=== PATIENT | female | born 1990 | race African-American/Black ===

== ENCOUNTER 2018-01-09 15:10 | Emergency (ER) | payer OTHER ==
[2018-01-09] MEDS ORDERED: ZANT150T2 PO (16:28)
[2018-01-09] MEDS ORDERED: PROM25TA10 PO (16:28)
--- NOTE | 2018-01-09 16:28 | PD ---
HPI Chief Complaint Nausea vomiting Date Seen: Jan 09, 2018 Time Seen: 16:23 Travel History International Travel<30 Days: No Contact w/Intl Traveler<30Days: No Known Affected Area: No History of Present Illness HPI 27-year-old who is at 35 weeks and 6 days comes in complaining of nausea vomiting since the beginning of her . Nothing has changed a bit today but her significant other felt that she needed to be assessed for medications. In her its says that she was given likely just an early but patient states that she is never taken. Initial weight during was 204 she lost about 10 pounds and is now back up to 207. She has also had some chronic proteinuria since beginning of the that does not seem to have changed has not been associated with elevated blood pressures. Patient states that she has not really experiencing nausea just had sudden feeling that the food that she is just ate is coming right back up. Weeks Gestation: 35 Para: 0 : 1 History Past Medical History Medical History: Denies Significant Hx Past Surgical History Surgical History: No Previous Surgery Family History Family History: Negative Social History Alcohol Use: No Tobacco Use: No Substance Abuse: No Allergies-Medications (Allergen,Severity, Reaction): Coded Allergies: No Known Allergies (Unverified , 08/10/16) Home Meds No Active Prescriptions or Reported Meds Review of Systems Except as stated in HPI: all other systems reviewed are Neg Physical Exam Narrative GENERAL: Well-nourished, well-developed patient. SKIN: Warm and dry. HEAD: Normocephalic and atraumatic. EYES: No scleral icterus. No injection or drainage. ENT: No nasal drainage noted. Mucous membranes pink. Airway patent. NECK: Supple, trachea midline. No JVD. CARDIOVASCULAR: Regular rate and rhythm without murmurs, gallops, or rubs. RESPIRATORY: Breath sounds equal bilaterally. No accessory muscle use. ABDOMEN/GI: Abdomen soft, non-tender, bowel sounds present, no rebound, no guarding Gravid to [36-] weeks size Fundal Height: [-] GENITOURINARY: Deferred External Genitalia: intact and normal in appearance BUS glands: [-] Cervix: [-] Dilatation: [-] Effacement: [-] Station: [-] Presentation: [-] Membranes: [intact or ruptured] Uterine Contractions: [-] FHT's: Category: [-] 1 Baseline: [-] 140 Reactive: [-] Moderate Variability: [-] Moderate Decels: [-] Absent EXTREMITIES: No cyanosis or edema. BACK: Nontender without obvious deformity. No CVA tenderness. NEUROLOGICAL: Awake and alert. Motor and sensory grossly within normal limits. Five out of 5 muscle strength in all muscle groups. Normal speech. Data Data Vital Signs Reviewed: Yes MDM Medical Record Reviewed: Yes Plan 27-year-old who is at 35 weeks 6 days with nausea and vomiting of . Patient has been stable without worsening today. She is considering using medication for relief. She sees her underground utility locator again on Monday. I have given her both Zantac and Phenergan with a reassessment on Monday with a change in medication is necessary. Diagnosis Diagnosis: Primary Impression: 35 weeks gestation of Additional Impression: Nausea and vomiting during Disposition: DISCHARGE HOME Scripts Promethazine (Phenergan) 25 Mg Tablet 25 MG PO Q6H Y for NAUSEA OR VOMITING, #30 TAB 0 Refills Prov: Beatrice Silveira MD 01/09/18 Ranitidine (Zantac) 150 Mg Tab 150 MG PO BID for Reduce Stomach Acid, #60 TAB 0 Refills Prov: Beatrice Silveira MD 01/09/18 Beatrice Silveira MD Jan 09, 2018 16:28
== END 2018-01-09 16:34 | disposition home or self-care (01) ==
LOC: HOBED 15:10
DX: O26.893 Other specified pregnancy related conditions, third trimester (principal); R11.2 Nausea with vomiting, unspecified; Z3A.35 35 weeks gestation of pregnancy
CPT/HCPCS: 59025

== ENCOUNTER 2018-02-06 09:55 | Emergency (ER) | payer OTHER ==
[~2018-02-06 09:55] MED LIST: PROM25TA10 PO; ZANT150T2 PO
[2018-02-06] MEDS ORDERED: PROMETHAZINE INJ 25 MG/ML VIAL IM ONE (10:45)
[2018-02-06] MEDS ORDERED: MEPERIDINE HCL 50 MG/ML VIAL IM ONE (10:45)
--- NOTE | 2018-02-06 10:52 | PD ---
HPI Chief Complaint Back pain and contractions Date Seen: February 06, 2018 Time Seen: 10:45 Travel History International Travel<30 Days: No Contact w/Intl Traveler<30Days: No Known Affected Area: No History of Present Illness HPI Patient is 27-year-old black female at [address] Ramirez for care and presents with back pain and contractions and what she describes" back labor" since early this morning, no bleeding or leakage of fluid , heart rate tracing reactive, she is leighann irregularly but she is so mobile on the bed and thrashing around times that started keep monitor strip Weeks Gestation: 39 Para: 0 : 1 History Social History Alcohol Use: No Tobacco Use: No Substance Abuse: No Allergies-Medications (Allergen,Severity, Reaction): Coded Allergies: No Known Allergies (Unverified , 08/10/16) Home Meds Active Scripts Promethazine (Phenergan) 25 Mg Tablet, 25 MG PO Q6H Y for NAUSEA OR VOMITING, # 30 TAB 0 Refills Prov:Beatrice Silveira MD 01/09/18 Ranitidine (Zantac) 150 Mg Tab, 150 MG PO BID for Reduce Stomach Acid, #60 TAB 0 Refills Prov:Beatrice Silveira MD 01/09/18 Review of Systems General / Constitutional: No: Fever, Weight Gain, Chills, Other Eyes: No: Diploplia, Blurred Vision, Visual changes, Pain, Photophobia HENT: No: Headaches, Vertigo, Lightheadedness Cardiovascular: No: Irregular Rhythm, Chest Pain or Discomfort, Palpitations, Tachycardia, Syncope, Varicosities, Edema, Cyanosis Respiratory: No: Cough, Short of Breath, Other Gastrointestinal: Abdominal Pain, No: Nausea, Vomiting, Diarrhea Genitourinary: No: Decreased Urinary Output, Oliguria Musculoskeletal: No: Limited ROM, Weakness, Cramping, Edema, Pain Skin: No Rash, No Itching, No Dryness, No Lumps, No Change in Pigmentation, No Change in Nails, No Alopecia, No Lesions Neurologic: No: Weakness, Dizziness, Syncope, Focal Abnormalities, Coordination Problem, Headache, Slurred Speech, Seizures Psychiatric: No: Depression, Suicidal Ideations, Homicidal Ideation Endocrine: No: Heat Intolerance, Cold Intolerance, Polydipsia, Polyuria, Other Physical Exam Narrative GENERAL: Well-nourished, well-developed patient. SKIN: Warm and dry. HEAD: Normocephalic and atraumatic. EYES: No scleral icterus. No injection or drainage. ENT: No nasal drainage noted. Mucous membranes pink. Airway patent. NECK: Supple, trachea midline. No JVD. CARDIOVASCULAR: Regular rate and rhythm without murmurs, gallops, or rubs. RESPIRATORY: Breath sounds equal bilaterally. No accessory muscle use. BREASTS: Bilateral exam showed no masses , no retractions, no nipple discharge. ABDOMEN/GI: Abdomen soft, non-tender, bowel sounds present, no rebound, no guarding Gravid to [-39] weeks size Fundal Height: [39-] GENITOURINARY: External Genitalia: intact and normal in appearance BUS glands: [-] Cervix: [-post] Dilatation: [-1] Effacement: [70-] Station: [-3] Presentation: [vtx-] Membranes: [intact ] Uterine Contractions: [-irreg] FHT's: Category: [-1] Baseline: [133-] Reactive: [-R] Variability: [-mod] Decels: [-none] EXTREMITIES: No cyanosis or edema. BACK: Nontender without obvious deformity. No CVA tenderness. NEUROLOGICAL: Awake and alert. Motor and sensory grossly within normal limits. Five out of 5 muscle strength in all muscle groups. Normal speech. Data Data Orders Orders Meperidine Inj (Demerol Inj) (02/06/18 10:45) Promethazine Inj (Phenergan Inj) (02/06/18 10:45) MDM Interpretation(s) 27-year-old black female at 39 weeks who presents with severe back pain that comes and goes and contractions. Her contractions are somewhat irregular but they are hard to monitor because she moves around a lot on the bed, no bleeding or leakage of fluid, heart rate tracing reactive, her cervix is 1 /70/-3/vertex Plan Planned offer the patient IM shot of Demerol Phenergan for her pain monitor the baby for a reactive NST We will likely discharge to observation at home with Tylenol, increase fluids, bed rest, heating pad or hot bath for symptom relief return for worsening pain, bleeding, leakage otherwise see her OB provider Diagnosis Diagnosis: Primary Impression: Uterine contractions during Additional Impression: 39 weeks gestation of Disposition: DISCHARGE HOME Condition: Stable Cooper Oro II, MD February 06, 2018 10:52
[2018-02-07] MEDS ORDERED: PREN1TAB45 PO ×2 (11:16)
== END 2018-02-06 14:10 | disposition home or self-care (01) ==
LOC: HOBED 09:55
DX: O62.9 Abnormality of forces of labor, unspecified (principal); Z3A.39 39 weeks gestation of pregnancy; Z79.899 Other long term (current) drug therapy
CPT/HCPCS: 59025; 96372; 99284; J2175; J2550

== ENCOUNTER 2018-02-07 10:44 | Inpatient (IN) | payer OTHER ==
[2018-02-07] VITALS (32 sets, daily range): BP systolic 92–153; BP diastolic 54–105; PULSE 76–185; RESP 18–20; TEMP 97.4–98.4; O2SAT 100
[~2018-02-07] VITALS: Ht 162.6 cm; Wt 92.1 kg
[2018-02-07] MEDS ORDERED: PREN1TAB45 PO ×2 (11:16)
[2018-02-07] MEDS ORDERED: LACTATED RINGER'S 1000 ML INJ 1,000 ML IV PRN (11:27)
--- NOTE | 2018-02-07 11:27 | PD ---
HPI Chief Complaint Contraction Travel History International Travel<30 Days: No Contact w/Intl Traveler<30Days: No Known Affected Area: No History of Present Illness HPI 27-year-old , IUP at 40.0 care complicated by anxiety The patient presents reporting contractions that started 8 AM yesterday. She reports that they increased in intensity and frequency during the afternoon and became very painful at 4 AM. She reports that the contractions are regular and are occurring every few minutes. She denies any leaking of fluid or vaginal bleeding. She reports that she had some vaginal spotting yesterday after she was examined. She reports good movement. Weeks Gestation: 40 Para: 0 : 1 History Past Medical History Narrative Medical Obesity, anxiety Obstetric History Obstetric History Past Surgical History Surgical History: No Previous Surgery Family History Narrative Family History HTN Social History Alcohol Use: No Tobacco Use: No Substance Abuse: No Allergies-Medications (Allergen,Severity, Reaction): Coded Allergies: No Known Allergies (Unverified Allergy, Unknown, 02/06/18) Home Meds Reported Medications Vit,Calc76/Iron/Folic (Pnv 29-1 Tablet) 29 Mg Iron-1 Mg Tablet, 1 TAB PO DAILY 02/07/18 Discontinued Scripts Promethazine (Phenergan) 25 Mg Tablet, 25 MG PO Q6H Y for NAUSEA OR VOMITING, # 30 TAB 0 Refills Prov:Beatrice Silveira MD 01/09/18 Ranitidine (Zantac) 150 Mg Tab, 150 MG PO BID for Reduce Stomach Acid, #60 TAB 0 Refills Prov:Beatrice Silveira MD 01/09/18 Review of Systems Except as stated in HPI: all other systems reviewed are Neg Physical Exam Narrative GENERAL: Well-nourished, well-developed patient. SKIN: Warm and dry. HEAD: Normocephalic and atraumatic. EYES: No scleral icterus. No injection or drainage. ENT: No nasal drainage noted. Mucous membranes pink. Airway patent. NECK: Supple, trachea midline. No JVD. CARDIOVASCULAR: Regular rate and rhythm without murmurs, gallops, or rubs. RESPIRATORY: Breath sounds equal bilaterally. No accessory muscle use. BREASTS: Deferred ABDOMEN/GI: Abdomen soft, non-tender, bowel sounds present, no rebound, no guarding Gravid GENITOURINARY: External Genitalia: intact and normal in appearance. Normal BUS. No cervical or vaginal masses noted. Physiologic discharge. Normal rugae noted. SVE 6/90/-2 as per RN exam. FHT's: heart tones are in the 120s with moderate long-term variability, good accelerations, no decelerations noted. There is a category 1 heart rate tracing and a reactive NST. EXTREMITIES: No cyanosis or edema. BACK: Nontender without obvious deformity. NEUROLOGICAL: Awake and alert. Motor and sensory grossly within normal limits. Normal speech. Psychiatric: Grossly normal memory and affect Musculoskeletal: Grossly normal range of motion, gait, muscle strength Data Data Orders Orders Ob (2e) Additional Admit Info (02/07/18 11:06) MDM Plan Assessment/plan: 1. IUP at 40.0 2. Active labor: We will admit to Dr. New for labor at term. Basic labor orders placed. Dr. new notified. 3. well-being: Reassuring testing with reactive NST and category 1 heart rate tracing. Will continue monitoring 4. GBS negative 5. Obesity 6. History of anxiety 7. First BP elevated, but was during RN exam, subsequent BP in triage normal. Monitor closely. Giovana Mckay MD February 07, 2018 11:27
[2018-02-07] MEDS ORDERED: OXYTOCIN 30 UNITS-500ML PREMIX 500 ML IV ONE (11:30)
[2018-02-07] MEDS ORDERED: LIDOCAINE HCL 1% 50 ML VIAL I-DERMAL PRN (11:30)
[2018-02-07] MEDS ORDERED: LIDOCAINE HCL 1% 50 ML VIAL INFIL PRN (11:30)
[2018-02-07] MEDS ORDERED: CITRIC ACID-SODIUM CITRATE LIQ 30 ML UDC PO SCH (11:30)
[2018-02-07] MEDS ORDERED: SODIUM CHLORID 0.9% 500 ML INJ 500 ML IV PRN (11:30)
[2018-02-07] MEDS ORDERED: ONDANSETRON HCL 4 MG/2 ML VIAL IV PUSH PRN (11:30)
[2018-02-07] MEDS ORDERED: SODIUM CHLOR 0.9% 1000 ML INJ 1,000 ML IV PRN (11:47)
[2018-02-07 12:17] LABS: AUTOMATED NEUTROPHIL # 7.5 TH/MM3 (1.8-7.7); BASOPHIL % 0.1 % (0.0-2.0); HEMATOCRIT 35.4 % (35.0-46.0); HEMOGLOBIN 12.1 GM/DL (11.6-15.3); LYMPH % 13.8 % (9.0-44.0); LYMPHOCYTE # 1.3 TH/MM3 (1.0-4.8); MEAN CELL VOLUME 91.6 FL (80.0-100.0); MEAN CORPUSCULAR HEMOGLOBIN 31.2 PG (27.0-34.0); MEAN CORPUSCULAR HGB CONC 34.1 % (32.0-36.0); MEAN PLATELET VOLUME 8.8 FL (7.0-11.0); MONO % 5.4 % (0.0-8.0); MONOCYTE # 0.5 TH/MM3 (0-0.9); NEUT % 80.7 % (16.0-70.0); PLATELET COUNT 234 TH/MM3 (150-450); RED BLOOD COUNT 3.86 MIL/MM3 (4.00-5.30); RED CELL DISTRIBUTION WIDTH 16.2 % (11.6-17.2); WHITE BLOOD COUNT 9.3 TH/MM3 (4.0-11.0)
[2018-02-07] MEDS: LACTATED RINGER'S 1000 ML INJ 1,000 ML IV SCH ×2 (12:24→19:54)
[2018-02-07 12:28] LABS: BACTERIA, URINE RARE /hpf; BILIRUBIN, URINE NEG (NEG); BLOOD, URINE NEG (NEG); GLUCOSE,URINE NEG (NEG); HYALINE CAST, URINE 2 /lpf (RARE); KETONE, URINE 150 mg/dL (NEG); MUCUS URINE FEW /lpf (OCC); NITRITE,URINE NEG (NEG); SQUAMOUS EPITHELIAL CELL URINE 3 /hpf (0-5); URINE COLOR YELLOW (YELLW/STRAW); URINE LEUKOCYTE ESTERASE TRACE (NEG)
[2018-02-07] MEDS ORDERED: fentaNYL 2MCG-BUPIV 0.125% INJ 100 ML ONE (18:19)
[2018-02-07] MEDS ORDERED: ePHEDrine/NS 25 MG/5 ML SYRINGE ONE (18:19)
[2018-02-07] MEDS ORDERED: LIDOCAINE HCL 1% PF 30 ML VIAL ONE (19:27)
[2018-02-07] MEDS ORDERED: diphenhydrAMINE HCL 50 MG/ML VIAL IV PUSH ONE (20:30)
--- NOTE | 2018-02-07 20:30 | PD.LABORPN ---
Subjective Subjective comfortable with epidural Objective Vital Signs Vital Signs Date Time Temp Pulse Resp B/P (MAP) Pulse Ox O2 Delivery O2 Flow Rate FiO2 02/07/18 19:50 138/65 (89) 02/07/18 19:50 108 02/07/18 19:46 124 141/71 (94) 02/07/18 19:45 119 02/07/18 19:44 109 123/91 (102) 02/07/18 19:40 91 100 02/07/18 19:35 89 148/77 (100) 100 02/07/18 19:31 108 153/74 (100) 02/07/18 19:30 121 100 02/07/18 18:58 111 108/88 (95) 02/07/18 18:54 97.4 18 02/07/18 17:12 116 130/79 (96) 02/07/18 15:53 76 128/73 (91) 02/07/18 14:05 20 02/07/18 14:04 90 112/54 (73) 02/07/18 13:42 98.4 Objective 8cm, swelling of anterior lip ant tightening -1 station strip reassuring Weeks Gestation: 40 Gest Age Assessed Date: February 07, 2018 Gest Age Assessed Time: 20:28 Assessment/Plan Assessment and Plan IUPC placed benedryl 50 IM likelihood of section if cervix continues to swell and tighten Grace Gruber MD February 07, 2018 20:30
[2018-02-07] MEDS ORDERED: ePHEDrine/NS 25 MG/5 ML SYRINGE IV PUSH PRN (20:45)
[2018-02-07] MEDS ORDERED: NO SYSTEM NARCOTICS PRN (20:45)
[2018-02-07] MEDS ORDERED: DO NOT ADMINISTER ANTICOAGULANTS PRN (20:45)
[2018-02-07] MEDS ORDERED: fentaNYL 2MCG-BUPIV 0.125% 100 ML EPIDURAL PRN (20:45)
[2018-02-07] MEDS ORDERED: OXYTOCIN 30 UNITS-500ML PREMIX 500 ML IV PRN (21:15)
--- NOTE | 2018-02-07 22:57 | PD.LABORPN ---
Subjective Subjective comfortable can't feel anything lip reduced rim and 0 to +1 EFW 8 pelvis clinically adequate start to push Objective Vital Signs Vital Signs Date Time Temp Pulse Resp B/P (MAP) Pulse Ox O2 Delivery O2 Flow Rate FiO2 02/07/18 22:30 90 132/74 (93) 02/07/18 22:00 93 135/75 (95) 02/07/18 21:30 87 129/71 (90) 02/07/18 21:00 99 122/72 (89) 02/07/18 20:58 86 127/69 (88) 02/07/18 20:46 18 02/07/18 20:45 106 125/76 (92) 02/07/18 20:43 18 02/07/18 20:30 113 110/81 (91) 02/07/18 20:21 101 92/67 (75) 02/07/18 20:16 130/105 (113) 02/07/18 20:10 132 107/77 (87) 02/07/18 20:10 185 02/07/18 20:05 154 02/07/18 20:05 152 130/73 (92) 02/07/18 20:00 111 02/07/18 20:00 18 02/07/18 20:00 135 139/78 (98) 02/07/18 19:55 154 02/07/18 19:55 113 98/55 (69) 02/07/18 19:50 138/65 (89) 02/07/18 19:50 108 02/07/18 19:46 124 141/71 (94) 02/07/18 19:45 119 02/07/18 19:44 109 123/91 (102) 02/07/18 19:40 91 100 02/07/18 19:35 89 148/77 (100) 100 02/07/18 19:31 108 153/74 (100) 02/07/18 19:30 121 100 02/07/18 18:58 111 108/88 (95) 02/07/18 18:54 97.4 18 02/07/18 17:12 116 130/79 (96) 02/07/18 15:53 76 128/73 (91) Objective Pelvic Exam: Cervix: [-] Dilatation: [-] Effacement: [-] Station: [-] Presentation: [-] Membranes: [intact or ruptured] Uterine Contractions: [-] FHT's: Category: [-] Baseline: [-] Reactive: [-] Variability: [-] Decels: [-] Weeks Gestation: 40 Gest Age Assessed Date: February 07, 2018 Gest Age Assessed Time: 20:28 Pt started active labor?: Yes Medical induction of labor?: No Artificial rupture of membrane: No Assessment/Plan Assessment and Plan anticipate Grace Gruber MD February 07, 2018 22:57
[2018-02-08] VITALS (11 sets, daily range): BP systolic 109–128; BP diastolic 54–70; PULSE 89–110; RESP 16–20; TEMP 97.8–98.3
[2018-02-08] MEDS: MINERAL OIL 10 ML VIAL TOPICAL PRN ×2 (00:55→00:56)
--- NOTE | 2018-02-08 01:27 | PD.OB.DELI ---
Weeks gestation: 40 Gest age assessed date: February 07, 2018 Gest age assessed time: 20:28 Pt started active labor?: Yes Medical induction of labor?: No Artificial rupture of membrane: No Anesthesia: Epidural Episiotomy: Midline Vaginal Delivery: Forceps Presentation: Occiput anterior Nuchal Cord: x1 Delayed cord clamping (45 sec): Yes Shoulder Dystocia: Suprapubic pressure given : Male Delivery date: February 08, 2018 Delivery time: 01:25 One Minute : 8 Five Minute : 9 Weight: 7 15 Placenta: Spontaneous delivery Laceration: 3 deg Repair: Chromic interrupted, Vicryl interrupted Estimated blood loss: 300 Additional Information caput right blade close to eye due to asynclitism good movement both arms doing well with mom Grace Gruber MD February 08, 2018 01:27
[2018-02-08] MEDS ORDERED: WITCH HAZEL 50%/GLYCERIN 12.5% 40 PAD JAR TOPICAL PRN (01:30)
[2018-02-08] MEDS ORDERED: OXYTOCIN 30 UNITS-500ML PREMIX 500 ML IV SCH (01:30)
[2018-02-08] MEDS ORDERED: ALUMINUM/MAGNESIUM/SIMETH 30 ML CUP PO PRN (01:30)
[2018-02-08] MEDS ORDERED: SODIUM CHLORIDE 0.9% FLUSH 10 ML FLUSH IV FLUSH PRN (01:30)
[2018-02-08] MEDS ORDERED: BENZOCAINE 20% TOPICAL SPRAY 60 ML CAN TOPICAL PRN (01:30)
[2018-02-08] MEDS ORDERED: ZOLPIDEM TARTRATE 5 MG TAB PO PRN (01:30)
[2018-02-08] MEDS ORDERED: ONDANSETRON ODT 4 MG TAB PO PRN (01:30)
[2018-02-08] MEDS ORDERED: ACETAMINOPHEN 325 MG TAB PO PRN (01:30)
--- NOTE | 2018-02-08 01:30 | HHI.DCPOC ---
Discharge Care Plan Report Symptoms to Your Doctor -Temperature above 100.5 degrees -Redness, of incision or excessive or foul smelling drainage -Unusual pain or calf pain -Increased vaginal bleeding -Painful or difficulty urinating -Feelings of extreme sadness or anxiety after 2 weeks Goals to Promote Your Health * To prevent worsening of your condition and complications * To maintain your health at the optimal level Directions to Meet Your Goals Take your medications as prescribed Follow your dietary instruction Follow activity as directed Ensure plenty of rest for recovery Drink fluids for hydration Keep your appointments as scheduled Take your immunizations and boosters as scheduled If your symptoms worsen call your PCP, if no PCP go to Urgent Care Center or Emergency Room Smoking is Dangerous to Your Health. Avoid second hand smoke Call the 24-hour crisis hotline for domestic abuse at Grace Gruber MD February 08, 2018 01:29
[2018-02-08] MEDS: IBUPROFEN 800 MG TAB PO PRN ×2 (05:22→16:51)
[2018-02-08] MEDS: DOCUSATE SODIUM 50 MG/SENNA 8.6 MG TAB PO PRN (05:22)
--- NOTE | 2018-02-08 08:29 | HHI.OB ---
Subjective Post Day: 0 Remarks comfortable and resting low forceps from MATEO with mild asyclitism voiding not painful Objective Vitals/I&O Vital Signs Date Time Temp Pulse Resp B/P (MAP) Pulse Ox O2 Delivery O2 Flow Rate FiO2 02/08/18 02:50 17 02/08/18 02:45 106 110/64 (79) 02/08/18 02:30 110 113/67 (82) 02/08/18 02:15 96 111/68 (82) 02/08/18 02:15 18 02/08/18 02:00 98 128/60 (82) 02/08/18 01:45 104 122/68 (86) 02/08/18 01:30 98.1 18 02/08/18 01:30 93 122/60 (80) 02/08/18 01:15 101 113/54 (73) 02/08/18 01:10 101 123/67 (85) 02/07/18 23:00 105 135/78 (97) 02/07/18 22:30 90 132/74 (93) 02/07/18 22:00 93 135/75 (95) 02/07/18 21:30 87 129/71 (90) 02/07/18 21:00 99 122/72 (89) 02/07/18 20:58 86 127/69 (88) 02/07/18 20:46 18 02/07/18 20:45 106 125/76 (92) 02/07/18 20:43 18 02/07/18 20:30 113 110/81 (91) 02/07/18 20:21 101 92/67 (75) 02/07/18 20:16 130/105 (113) 02/07/18 20:10 132 107/77 (87) 02/07/18 20:10 185 02/07/18 20:05 154 02/07/18 20:05 152 130/73 (92) 02/07/18 20:00 111 02/07/18 20:00 18 02/07/18 20:00 135 139/78 (98) 02/07/18 19:55 154 02/07/18 19:55 113 98/55 (69) 02/07/18 19:50 138/65 (89) 02/07/18 19:50 108 02/07/18 19:46 124 141/71 (94) 02/07/18 19:45 119 02/07/18 19:44 109 123/91 (102) 02/07/18 19:40 91 100 02/07/18 19:35 89 148/77 (100) 100 02/07/18 19:31 108 153/74 (100) 02/07/18 19:30 121 100 02/07/18 18:58 111 108/88 (95) 02/07/18 18:54 97.4 18 02/07/18 17:12 116 130/79 (96) 02/07/18 15:53 76 128/73 (91) 02/07/18 14:05 20 02/07/18 14:04 90 112/54 (73) 02/07/18 13:42 98.4 02/07/18 12:23 98.4 02/07/18 12:02 80 124/69 (87) 02/07/18 12:00 123 119/101 (107) Objective Remarks GENERAL: Well-nourished, well-developed patient. CARDIOVASCULAR: Regular rate and rhythm without murmurs, gallops, or rubs. RESPIRATORY: Breath sounds equal bilaterally. No accessory muscle use. ABDOMEN/GI: Abdomen soft, non-tender. Fundus: Firm, non-tender at umbilicus. GENITOURINARY: Light to moderate bleeding. perineum looks good with no hematoma or excessive swelling EXTREMITIES: No cyanosis or edema, non-tender, without signs of DVT. Medications and IVs Current Medications Medications (Trade) Dose Ordered Sig/Yaniv Route Start Time Stop Time Status Last Admin ([facility] No systemic narcotics to be given except... UNSCH PRN .XX 02/07/18 20:45 02/08/18 20:44 ([facility] DO NOT ADMINISTER ANY ANTICOAGUL... UNSCH PRN .XX 02/07/18 20:45 02/08/18 20:44 Fentanyl/ Bupivacaine HCl 100 ml @ 12 mls/hr TITRATE PRN EPIDURAL 02/07/18 20:45 (ePHEDrine/NS 25 MG/5 ML SYR) 10 mg UNSCH PRN IV PUSH 02/07/18 20:45 02/08/18 20:44 02/07/18 19:56 (NS Flush) 2 ml BID IV FLUSH 02/08/18 09:00 (NS Flush) 2 ml UNSCH PRN IV FLUSH 02/08/18 01:30 (Tylenol) 650 mg Q4H PRN PO 02/08/18 01:30 (Motrin) 800 mg Q8H PRN PO 02/08/18 01:30 02/08/18 05:22 (Percocet 5-325 Mg) 1 tab Q4H PRN PO 02/08/18 01:30 (Percocet 5-325 Mg) 2 tab Q4H PRN PO 02/08/18 01:30 (Americaine 20% Top Spr) 1 spray Q4H PRN TOPICAL 02/08/18 01:30 (Tucks Pads) 1 applic QID PRN TOPICAL 02/08/18 01:30 (Juanis-Colace) 2 tab Q12H PRN PO 02/08/18 01:30 02/08/18 05:22 (Ambien) 5 mg HS PRN PO 02/08/18 01:30 (M-M-R Ii Inj) 0.5 ml ONCE ONCE SQ 02/08/18 16:00 02/08/18 16:01 (Boostrix Inj) 0.5 ml ONCE ONCE IM 02/08/18 16:00 02/08/18 16:01 (Mag-Al Plus Susp Liq) 15 ml Q8H PRN PO 02/08/18 01:30 (Zofran Odt) 4 mg Q6H PRN PO 02/08/18 01:30 Assessment/Plan Assessment and Plan unremarkale post visit after low forceps infant for circumcision tomorrow anticipate home PPD 2 Grace Gruber MD February 08, 2018 08:29
[2018-02-08] MEDS ORDERED: SODIUM CHLORIDE 0.9% FLUSH 10 ML FLUSH IV FLUSH SCH (09:00)
[2018-02-08] MEDS: oxyCODONE/ACETAMINOPHEN 5 MG/325 MG TAB PO PRN ×2 (11:20→16:51)
[2018-02-08] MEDS ORDERED: DIPHTH/TETANUS/ACEL PERTUSSIS (BOOSTER) 0.5 ML VIAL/PFS IM ONE (16:00)
[2018-02-08] MEDS ORDERED: MEASLES, MUMPS, RUBELLA VACCINE 0.5 ML VIAL SQ ONE (16:00)
[2018-02-09] MEDS: oxyCODONE/ACETAMINOPHEN 5 MG/325 MG TAB PO PRN (03:02)
[2018-02-09] MEDS: IBUPROFEN 800 MG TAB PO PRN ×2 (03:02→13:31)
[2018-02-09 08:00] VITALS: BP 103/67; PULSE 91; RESP 18; TEMP 98.3
[2018-02-09 21:04] VITALS: BP 103/69; PULSE 89; RESP 18; TEMP 98.5
[2018-02-10] MEDS: IBUPROFEN 800 MG TAB PO PRN ×2 (00:13→08:12)
[2018-02-10] MEDS: oxyCODONE/ACETAMINOPHEN 5 MG/325 MG TAB PO PRN (00:18)
[2018-02-10 08:00] VITALS: BP 103/62; PULSE 67; RESP 20; TEMP 98.1
[2018-02-10] MEDS: DOCUSATE SODIUM 50 MG/SENNA 8.6 MG TAB PO PRN (08:12)
== END 2018-02-10 14:20 | disposition home or self-care (01) | DRG 775 ==
LOC: HOBED 10:44 → H2EB 11:12 → H1EA 02-08 04:01
PROVIDERS: ADMIT Obstetrics & Gynecology; ATTEND Obstetrics & Gynecology
PROC: 00HU33Z Insertion of Infusion Device into Spinal Canal, Percutaneous Approach (ICD-10-PCS; 2018-02-07)
PROC: 3E0R3BZ Introduction of Anesthetic Agent into Spinal Canal, Percutaneous Approach (ICD-10-PCS; 2018-02-07)
PROC: 10D07Z8 Extraction of Products of Conception, Other, Via Natural or Artificial Opening (ICD-10-PCS; principal; 2018-02-08)
PROC: 0DQR0ZZ Repair Anal Sphincter, Open Approach (ICD-10-PCS; 2018-02-08)
PROC: 0W8NXZZ Division of Female Perineum, External Approach (ICD-10-PCS; 2018-02-08)
DX: O66.0 Obstructed labor due to shoulder dystocia (principal); O70.20 Third degree perineal laceration during delivery, unspecified; O99.89 Other specified diseases and conditions complicating pregnancy, childbirth and the puerperium; F41.9 Anxiety disorder, unspecified; O69.81X0 Labor and delivery complicated by cord around neck, without compression, not applicable or unspecified; O32.8XX0 Maternal care for other malpresentation of fetus, not applicable or unspecified; O99.214 Obesity complicating childbirth; O99.344 Other mental disorders complicating childbirth; R03.0 Elevated blood-pressure reading, without diagnosis of hypertension; Z37.0 Single live birth; Z3A.40 40 weeks gestation of pregnancy; Z23 Encounter for immunization
CPT/HCPCS: 80307; 81001; 82805; 85025; 86900; 86901; 90715; 99283; G0481; J1200; J2590; J3010; J7120